=== PATIENT | male | born 1965 | race Caucasian/White ===

== ENCOUNTER 2019-03-23 17:15 | Inpatient (IN) ==
[2019-03-23] MEDS ORDERED: ALUM/MAG/SIMETH/LIDO VISC 1:1 30 ML BOTTLE PO STA (18:29)
[2019-03-23] MEDS ORDERED: ONDANSETRON 4 MG/2 ML VIAL IV STA (18:29)
[2019-03-23] MEDS ORDERED: NITROGLYCERIN 2% OINT 1 INCH/GM PACK TOP STA (18:29)
[2019-03-23 19:13] LABS: Basophils % 0.5 % (0.0-0.8); Eosinophils # 0.5 10*3/uL (0.0-0.87); Eosinophils % 6.9 % (0.00-10.9); Hematocrit 41.2 VOL% (42.0-52.0); Hemoglobin 13.8 GM/DL (14.0-18.0); Immature Granulocytes % 0.3 %; Immature Granulocytes Absolute 0.02 #; Lymphocytes # 2.4 10*3/uL (1.4-4.0); Lymphocytes % 31.5 % (21.2-54.2); Mean Corpuscular HGB Conc 33.5 GM/DL (32-36); Mean Corpuscular Volume 87.1 FL (87-102); Mean Platelet Volume 9.8 FL (9.6-12.0); Monocytes % 10.2 % (1.7-12.7); Neutrophils % 50.6 % (38.7-73.9); Platelet Count 333 T/CUMM (130-400); Red Blood Count 4.73 MC/CUMM (3.8-5.5); White Blood Count 7.7 T/CUMM (4-12)
[2019-03-23 19:17] LABS: Alanine Aminotransferase 24 U/L (16-61); Albumin 3.4 G/DL (3.4-5.0); Alkaline Phosphatase 46 U/L (45-117); Aspartate Amino Transferase 14 U/L (0-37); Bilirubin,Total < 0.39 MG/DL (0.2-1.0); Blood Urea Nitrogen 13 MG/DL (7-18); Calcium 9.4 MG/DL (8.5-10.1); Estimated Glom Filtration Rate 138 ML/MIN; Glucose 150 MG/DL (74-106); Osmolality,Calculated 277.7 MOS/KG (273-304); Total Protein 6.6 G/DL (6.4-8.3)
[2019-03-23 19:22] LABS: INR 0.9; PT Patient Result 9.8 SECS (9.6-12.2)
[2019-03-23] MEDS ORDERED: MORPHINE 4 MG/1 ML VIAL ONE (19:23)
[2019-03-23 19:25] LABS: Apearance,Urine CLEAR (Clear); Bilirubin,Urine Negative (Negative); Blood, Urine Negative (Negative); Glucose,Urine (UA) Negative (Negative); Ketones,Urine Negative (Negative); Nitrite,Urine Negative (Negative); Protein,Urine Negative; RBC,Urine 1 /HPF (0-4); Urine Color Straw (Yellow); Urine Specific Gravity 1.005 (1.001-1.035); Urine Urobilinogen < 2.0 EU/DL (0.2-1.0); WBC,Urine <1 /HPF (0-6)
[2019-03-23] MEDS ORDERED: MORPHINE 4 MG/1 ML VIAL IV STA (19:30)
[2019-03-23] MEDS ORDERED: ENOXAPARIN 100 MG/ML SYRINGE SUBCUT STA (19:39)
[2019-03-23] MEDS ORDERED: DEXTROSE 50% 25 GM/50 ML VIAL IV PRN (20:19)
[2019-03-23] MEDS ORDERED: GLUCAGON 1 MG VIAL IM PRN (20:19)
[2019-03-23] MEDS ORDERED: ONDANSETRON 4 MG/2 ML VIAL IV PRN (20:19)
[2019-03-23] MEDS ORDERED: ALBUTEROL 2.5 MG/3 ML NEB RESP TX PRN (20:26)
[2019-03-23] MEDS: ASPIRIN EC 325 MG TABLET PO SCH (21:38)
[2019-03-23] MEDS: GLIMEPIRIDE 2 MG TABLET PO SCH ×2 (23:44→23:49)
[2019-03-23] MEDS: INSULIN NPH/REGULAR 70/30 100 UNIT/ML SUBCUT SCH (23:45)
[2019-03-23] MEDS: INSULIN REGULAR 100 UNIT/ML SUBCUT SCH (23:45)
[2019-03-23] MEDS: METOPROLOL TARTRATE 25 MG TABLET PO SCH ×2 (23:45→23:50)
[2019-03-24] MEDS: ACETAMINOPHEN 325 MG TABLET PO PRN ×2 (06:54→19:07)
[2019-03-24] MEDS ORDERED: SIMVASTATIN 40 MG TABLET PO SCH (09:00)
[2019-03-24 09:53] LABS: Risk Ratio 5.46; VLDL CHOLESTEROL 68.8 MG/DL
[2019-03-24] MEDS: INSULIN REGULAR 100 UNIT/ML SUBCUT SCH ×4 (10:47→21:10)
[2019-03-24] MEDS: METOPROLOL TARTRATE 25 MG TABLET PO SCH ×3 (10:48→21:11)
[2019-03-24] MEDS: ASPIRIN EC 325 MG TABLET PO SCH (10:48)
[2019-03-24] MEDS: GLIMEPIRIDE 2 MG TABLET PO SCH ×2 (10:48→21:11)
[2019-03-24] MEDS: LOSARTAN 25 MG TABLET PO SCH (10:48)
[2019-03-24] MEDS: PANTOPRAZOLE 40 MG TABLET PO SCH (10:48)
[2019-03-24] MEDS: INSULIN NPH/REGULAR 70/30 100 UNIT/ML SUBCUT SCH ×2 (10:48→18:51)
[2019-03-24] MEDS ORDERED: GLUCAGON 1 MG VIAL IM PRN (11:05)
[2019-03-24] MEDS ORDERED: DEXTROSE 10% 250 ML BAG IV PRN (11:05)
[2019-03-24] MEDS: FENOFIBRATE 145 MG TABLET PO SCH ×2 (12:53→14:12)
[2019-03-24] MEDS: OMEGA 3 ACID ETHYL ESTERS 1 GM CAPSULE PO SCH ×2 (12:53→21:11)
[2019-03-24] MEDS: NITROGLYCERIN SL 0.4 MG TABLET SL PRN (18:51)
[2019-03-24] MEDS: ROSUVASTATIN 20 MG TABLET PO SCH (21:11)
[2019-03-25] MEDS: NITROGLYCERIN SL 0.4 MG TABLET SL PRN (01:15)
[2019-03-25] MEDS: ACETAMINOPHEN 325 MG TABLET PO PRN (04:05)
[2019-03-25 06:12] LABS: Basophils # 0.1 10*3/uL (0.0-0.2); Basophils % 0.6 % (0.0-0.8); Eosinophils # 0.6 10*3/uL (0.0-0.87); Eosinophils % 6.9 % (0.00-10.9); Hematocrit 41.5 VOL% (42.0-52.0); Hemoglobin 14.1 GM/DL (14.0-18.0); Immature Granulocytes % 0.2 %; Immature Granulocytes Absolute 0.02 #; Lymphocytes # 3.4 10*3/uL (1.4-4.0); Lymphocytes % 41.5 % (21.2-54.2); Mean Corpuscular Volume 87.4 FL (87-102); Mean Platelet Volume 9.5 FL (9.6-12.0); Neutrophils % 40.8 % (38.7-73.9); Platelet Count 302 T/CUMM (130-400); Red Blood Count 4.75 MC/CUMM (3.8-5.5); Red Cell Distribution Width 12.9 % (9.3-17.3); White Blood Count 8.3 T/CUMM (4-12)
[2019-03-25 06:34] LABS: Calcium 9.5 MG/DL (8.5-10.1); Osmolality,Calculated 282.1 MOS/KG (273-304)
[2019-03-25 06:39] LABS: Calcium 9.5 MG/DL (8.5-10.1); Osmolality,Calculated 280.3 MOS/KG (273-304)
[2019-03-25] MEDS: INSULIN REGULAR 100 UNIT/ML SUBCUT SCH ×4 (07:38→21:14)
[2019-03-25] MEDS ORDERED: MAGNESIUM SULF RIDER 2 GM in PREMIX 1 EACH IV PRN (08:27)
[2019-03-25] MEDS ORDERED: POTASSIUM CHLORIDE RIDER 10 MEQ in PREMIX 1 EACH IV PRN (08:27)
[2019-03-25] MEDS ORDERED: diphenhydrAMINE CAP 25 MG CAPSULE PO ONE (08:27)
[2019-03-25] MEDS ORDERED: DIAZEPAM 5 MG TABLET PO ONE (08:27)
[2019-03-25] MEDS: METOPROLOL TARTRATE 25 MG TABLET PO SCH ×2 (08:52→21:12)
[2019-03-25] MEDS: LOSARTAN 25 MG TABLET PO SCH (08:52)
[2019-03-25] MEDS: ASPIRIN EC 325 MG TABLET PO SCH (08:58)
[2019-03-25] MEDS: GLIMEPIRIDE 2 MG TABLET PO SCH ×2 (08:58→21:12)
[2019-03-25] MEDS: PANTOPRAZOLE 40 MG TABLET PO SCH (08:59)
[2019-03-25] MEDS: OMEGA 3 ACID ETHYL ESTERS 1 GM CAPSULE PO SCH ×2 (08:59→21:12)
[2019-03-25] MEDS: ISOSORBIDE MONONITRATE 30 MG TABLET PO SCH (08:59)
[2019-03-25] MEDS: INSULIN NPH/REGULAR 70/30 100 UNIT/ML SUBCUT SCH ×2 (08:59→18:20)
[2019-03-25] MEDS: FENOFIBRATE 145 MG TABLET PO SCH (09:00)
[2019-03-25] MEDS: SODIUM CHLORIDE 0.45% 1,000 ML IV SCH ×2 (09:09→19:04)
[2019-03-25] MEDS ORDERED: HEPARIN/NACL 0.9% 2 UNITS/ML 1,000 ML IV ONE (12:46)
[2019-03-25] MEDS ORDERED: LIDOCAINE 1% 20 ML VIAL ONE (12:46)
[2019-03-25] MEDS ORDERED: diphenhydrAMINE 50 MG/1 ML VIAL ONE ×2 (12:56→13:12)
[2019-03-25] MEDS ORDERED: HYDROmorphone 2 MG/1 ML VIAL ONE ×2 (12:56→13:12)
[2019-03-25] MEDS ORDERED: BIVALIRUDIN 250 MG VIAL IV ONE (13:25)
[2019-03-25] MEDS ORDERED: ADENOSINE 90 MG/30 ML VIAL IV ONE (13:53)
[2019-03-25] MEDS ORDERED: ASPIRIN 325 MG TABLET ONE (14:10)
[2019-03-25] MEDS ORDERED: TICAGRELOR 90 MG TABLET ONE (14:10)
[2019-03-25] MEDS ORDERED: ZALEPLON 5 MG CAPSULE PO PRN (14:16)
[2019-03-25] MEDS ORDERED: ENOXAPARIN 40 MG/0.4 ML SYRINGE SUBCUT SCH (14:30)
[2019-03-25] MEDS: TICAGRELOR 90 MG TABLET PO SCH (21:12)
[2019-03-25] MEDS: ROSUVASTATIN 20 MG TABLET PO SCH (21:12)
[2019-03-25 22:02] LABS: Troponin I < 0.015 NG/ML (0.00-0.045)
[2019-03-26] MEDS: SODIUM CHLORIDE 0.45% 1,000 ML IV SCH ×2 (03:35→20:06)
[2019-03-26 06:13] LABS: Basophils % 0.5 % (0.0-0.8); Eosinophils # 0.5 10*3/uL (0.0-0.87); Eosinophils % 6.1 % (0.00-10.9); Hematocrit 41.1 VOL% (42.0-52.0); Hemoglobin 13.6 GM/DL (14.0-18.0); Immature Granulocytes % 0.2 %; Immature Granulocytes Absolute 0.02 #; Lymphocytes # 3.1 10*3/uL (1.4-4.0); Lymphocytes % 36.1 % (21.2-54.2); Mean Corpuscular HGB Conc 33.1 GM/DL (32-36); Mean Corpuscular Volume 88.8 FL (87-102); Mean Platelet Volume 9.5 FL (9.6-12.0); Neutrophils % 47.1 % (38.7-73.9); Platelet Count 294 T/CUMM (130-400); Red Blood Count 4.63 MC/CUMM (3.8-5.5); Red Cell Distribution Width 13.1 % (9.3-17.3); White Blood Count 8.7 T/CUMM (4-12)
[2019-03-26 06:32] LABS: Calcium 8.8 MG/DL (8.5-10.1); Osmolality,Calculated 281.4 MOS/KG (273-304)
[2019-03-26 06:38] LABS: Blood Urea Nitrogen 15 MG/DL (7-18); Estimated Glom Filtration Rate 121 ML/MIN; Glucose 131 MG/DL (74-106); Osmolality,Calculated 279.5 MOS/KG (273-304); Troponin I < 0.015 NG/ML (0.00-0.045)
[2019-03-26] MEDS: INSULIN REGULAR 100 UNIT/ML SUBCUT SCH ×2 (08:41→12:53)
[2019-03-26] MEDS: INSULIN NPH/REGULAR 70/30 100 UNIT/ML SUBCUT SCH (08:42)
[2019-03-26] MEDS: GLIMEPIRIDE 2 MG TABLET PO SCH (08:44)
[2019-03-26] MEDS: METOPROLOL TARTRATE 25 MG TABLET PO SCH (08:45)
[2019-03-26] MEDS: OMEGA 3 ACID ETHYL ESTERS 1 GM CAPSULE PO SCH (08:45)
[2019-03-26] MEDS: LOSARTAN 25 MG TABLET PO SCH (08:45)
[2019-03-26] MEDS: TICAGRELOR 90 MG TABLET PO SCH (08:45)
[2019-03-26] MEDS: ISOSORBIDE MONONITRATE 30 MG TABLET PO SCH ×2 (08:45→08:54)
[2019-03-26] MEDS: FENOFIBRATE 145 MG TABLET PO SCH (08:45)
[2019-03-26] MEDS: PANTOPRAZOLE 40 MG TABLET PO SCH (08:45)
[2019-03-26] MEDS ORDERED: ASPIRIN EC 81 MG TABLET PO SCH (09:00)
[2019-03-26 12:57] VITALS: BP 147/89
== END 2019-03-26 15:49 | DRG 247 ==
LOC: N.EDINP 17:15 → N.ED 17:15 → N.3W 21:25
PROVIDERS: ADMIT Internal Medicine; ATTEND Internal Medicine
PROC: CLCCHCL (ICD-10-PCS; 2019-03-25 13:15)

== ENCOUNTER 2019-04-06 22:51 | Observation (INO) ==
[2019-04-06] MEDS ORDERED: MEPERIDINE 25 MG/1 ML VIAL IV STA (23:09)
[2019-04-06] MEDS ORDERED: ONDANSETRON 4 MG/2 ML VIAL IV STA (23:09)
[2019-04-06] MEDS ORDERED: NITROGLYCERIN 2% OINT 1 INCH/GM PACK TOP STA (23:09)
[2019-04-06 23:46] LABS: Basophils % 0.5 % (0.0-0.8); Eosinophils # 0.5 10*3/uL (0.0-0.87); Eosinophils % 5.6 % (0.00-10.9); Hematocrit 39.3 VOL% (42.0-52.0); Hemoglobin 13.2 GM/DL (14.0-18.0); Immature Granulocytes % 0.4 %; Immature Granulocytes Absolute 0.03 #; Lymphocytes # 2.9 10*3/uL (1.4-4.0); Lymphocytes % 34.8 % (21.2-54.2); Mean Corpuscular HGB Conc 33.6 GM/DL (32-36); Mean Corpuscular Volume 88.3 FL (87-102); Mean Platelet Volume 9.5 FL (9.6-12.0); Neutrophils % 49.7 % (38.7-73.9); Platelet Count 351 T/CUMM (130-400); Red Blood Count 4.45 MC/CUMM (3.8-5.5); Red Cell Distribution Width 13.1 % (9.3-17.3); White Blood Count 8.4 T/CUMM (4-12)
[2019-04-06 23:54] LABS: INR 0.9; Partial Thromboplastin Time 24.5 SECS (20.8-36.0)
[2019-04-06 23:58] LABS: Barbiturates Screen,Urine Negative (Negative); Benzodiazepines Screen,Urine Negative (Negative); Cannabinoid Screen,Urine Negative (Negative); Opiate Screen,Urine Positive (Negative); Phencyclidine Screen,Urine Negative (Negative)
[2019-04-06 23:59] LABS: Apearance,Urine CLEAR (Clear); Bilirubin,Urine Negative (Negative); Blood, Urine Negative (Negative); Glucose,Urine (UA) Negative (Negative); Ketones,Urine Negative (Negative); Mucus,Urine Occasional /LPF (Occasional); Nitrite,Urine Negative (Negative); Protein,Urine Negative; RBC,Urine 1 /HPF (0-4); Urine Color Yellow (Yellow); Urine Specific Gravity 1.011 (1.001-1.035); Urine Urobilinogen < 2.0 EU/DL (0.2-1.0); WBC,Urine 1 /HPF (0-6)
[2019-04-07 00:06] LABS: Alanine Aminotransferase 22 U/L (16-61); Albumin 3.3 G/DL (3.4-5.0); Alkaline Phosphatase 39 U/L (45-117); Aspartate Amino Transferase 16 U/L (0-37); Bilirubin,Total < 0.39 MG/DL (0.2-1.0); Blood Urea Nitrogen 13 MG/DL (7-18); Calcium 9.2 MG/DL (8.5-10.1); Estimated Glom Filtration Rate 108 ML/MIN; Glucose 125 MG/DL (74-106); Osmolality,Calculated 279.4 MOS/KG (273-304); Total Protein 6.8 G/DL (6.4-8.3); Troponin I < 0.015 NG/ML (0.00-0.045)
[2019-04-07] MEDS ORDERED: ORPHENADRINE 60 MG/2 ML VIAL IV STA (00:33)
[2019-04-07] MEDS ORDERED: INSULIN REGULAR 100 UNIT/ML SUBCUT ONE (01:45)
[2019-04-07] MEDS ORDERED: ONDANSETRON 4 MG/2 ML VIAL IV PRN (01:45)
[2019-04-07] MEDS ORDERED: ALBUTEROL 2.5 MG/3 ML NEB RESP TX PRN (02:02)
[2019-04-07 02:24] LABS: Risk Ratio 5.59; VLDL CHOLESTEROL 47.8 MG/DL
[2019-04-07] MEDS: MORPHINE 4 MG/1 ML VIAL IV PRN ×2 (02:27→06:51)
[2019-04-07] MEDS: NITROGLYCERIN 2% OINT 1 INCH/GM PACK TOP SCH ×2 (06:52→11:58)
[2019-04-07] MEDS: INSULIN REGULAR 100 UNIT/ML SUBCUT SCH ×4 (08:34→23:24)
[2019-04-07] MEDS: FENOFIBRATE 145 MG TABLET PO SCH (10:01)
[2019-04-07] MEDS: ASPIRIN EC 81 MG TABLET PO SCH (10:01)
[2019-04-07] MEDS: OMEGA 3 ACID ETHYL ESTERS 1 GM CAPSULE PO SCH ×2 (10:02→22:01)
[2019-04-07] MEDS: METOPROLOL TARTRATE 25 MG TABLET PO SCH ×2 (10:03→17:18)
[2019-04-07] MEDS: ISOSORBIDE MONONITRATE 30 MG TABLET PO SCH (10:03)
[2019-04-07] MEDS: TICAGRELOR 90 MG TABLET PO SCH ×2 (10:03→22:02)
[2019-04-07] MEDS: PANTOPRAZOLE 40 MG TABLET PO SCH (10:03)
[2019-04-07] MEDS: ENOXAPARIN 40 MG/0.4 ML SYRINGE SUBCUT SCH (10:03)
[2019-04-07] MEDS: LOSARTAN 25 MG TABLET PO SCH (10:03)
[2019-04-07] MEDS ORDERED: NITROGLYCERIN SL 0.4 MG TABLET SL PRN (11:35)
[2019-04-07] MEDS ORDERED: NITROGLYCERIN 2% OINT 1 INCH/GM PACK TOP SCH (12:20)
[2019-04-07] MEDS ORDERED: MAGNESIUM SULF RIDER 2 GM in PREMIX 1 EACH IV PRN (14:50)
[2019-04-07] MEDS ORDERED: POTASSIUM CHLORIDE RIDER 10 MEQ in PREMIX 1 EACH IV PRN (14:50)
[2019-04-07] MEDS: RANOLAZINE 500 MG TABLET PO SCH ×2 (15:57→22:01)
[2019-04-07] MEDS: ACETAMINOPHEN 325 MG TABLET PO PRN (15:57)
[2019-04-07] MEDS: ROSUVASTATIN 20 MG TABLET PO SCH (22:02)
[2019-04-08 05:58] LABS: Basophils % 0.4 % (0.0-0.8); Eosinophils # 0.5 10*3/uL (0.0-0.87); Eosinophils % 5.6 % (0.00-10.9); Immature Granulocytes % 0.1 %; Immature Granulocytes Absolute 0.01 #; Lymphocytes % 37.4 % (21.2-54.2); Mean Corpuscular HGB Conc 33.3 GM/DL (32-36); Mean Corpuscular Volume 87.6 FL (87-102); Mean Platelet Volume 9.6 FL (9.6-12.0); Monocytes % 10.7 % (1.7-12.7); Neutrophils % 45.8 % (38.7-73.9); Platelet Count 320 T/CUMM (130-400); Red Blood Count 4.45 MC/CUMM (3.8-5.5); Red Cell Distribution Width 13.1 % (9.3-17.3)
[2019-04-08 06:16] LABS: Calcium 8.8 MG/DL (8.5-10.1); Osmolality,Calculated 287.1 MOS/KG (273-304)
[2019-04-08] MEDS: INSULIN REGULAR 100 UNIT/ML SUBCUT SCH ×4 (07:45→20:32)
[2019-04-08] MEDS: TICAGRELOR 90 MG TABLET PO SCH ×2 (09:37→20:32)
[2019-04-08] MEDS: OMEGA 3 ACID ETHYL ESTERS 1 GM CAPSULE PO SCH ×2 (09:38→20:32)
[2019-04-08] MEDS: PANTOPRAZOLE 40 MG TABLET PO SCH (09:38)
[2019-04-08] MEDS: ACETAMINOPHEN 325 MG TABLET PO PRN (09:50)
[2019-04-08] MEDS: METOPROLOL TARTRATE 25 MG TABLET PO SCH ×2 (09:51→16:47)
[2019-04-08] MEDS: FENOFIBRATE 145 MG TABLET PO SCH (09:51)
[2019-04-08] MEDS: RANOLAZINE 500 MG TABLET PO SCH ×2 (09:51→20:37)
[2019-04-08] MEDS: ASPIRIN EC 81 MG TABLET PO SCH (09:51)
[2019-04-08] MEDS: LOSARTAN 25 MG TABLET PO SCH (09:52)
[2019-04-08] MEDS: ISOSORBIDE MONONITRATE 30 MG TABLET PO SCH (09:52)
[2019-04-08] MEDS: ENOXAPARIN 40 MG/0.4 ML SYRINGE SUBCUT SCH (09:52)
[2019-04-08] MEDS: SODIUM CHLORIDE 0.9% 1,000 ML IV SCH ×2 (09:52→18:39)
[2019-04-08] MEDS ORDERED: HYDROmorphone 2 MG/1 ML VIAL IV ONE (12:10)
[2019-04-08] MEDS ORDERED: LIDOCAINE 1% 20 ML VIAL ONE (12:19)
[2019-04-08] MEDS ORDERED: HEPARIN/NACL 0.9% 2 UNITS/ML 1,000 ML IV ONE (12:19)
[2019-04-08] MEDS ORDERED: DIAZEPAM 5 MG TABLET PO ONE (12:30)
[2019-04-08] MEDS ORDERED: diphenhydrAMINE CAP 25 MG CAPSULE PO ONE (12:30)
[2019-04-08] MEDS ORDERED: MIDAZOLAM 2 MG/2 ML VIAL ONE ×3 (14:29→14:51)
[2019-04-08] MEDS ORDERED: fentaNYL 100 MCG/2 ML VIAL ONE ×2 (14:29→14:51)
[2019-04-08] MEDS ORDERED: TICAGRELOR 90 MG TABLET ONE (15:03)
[2019-04-08] MEDS ORDERED: MORPHINE 4 MG/1 ML VIAL IV PRN (15:38)
[2019-04-08] MEDS ORDERED: fentaNYL 100 MCG/2 ML VIAL IV PRN (15:38)
[2019-04-08] MEDS: MORPHINE 4 MG/1 ML VIAL IV PRN ×2 (19:41→22:23)
[2019-04-08] MEDS: ROSUVASTATIN 20 MG TABLET PO SCH (20:32)
[2019-04-09] MEDS: SODIUM CHLORIDE 0.9% 1,000 ML IV SCH ×4 (01:37→20:17)
[2019-04-09] MEDS: MORPHINE 4 MG/1 ML VIAL IV PRN ×6 (01:40→20:15)
[2019-04-09 05:28] LABS: Basophils % 0.4 % (0.0-0.8); Eosinophils # 0.4 10*3/uL (0.0-0.87); Eosinophils % 4.7 % (0.00-10.9); Hemoglobin 12.8 GM/DL (14.0-18.0); Immature Granulocytes % 0.2 %; Immature Granulocytes Absolute 0.02 #; Lymphocytes % 35.7 % (21.2-54.2); Mean Corpuscular HGB Conc 33.7 GM/DL (32-36); Mean Corpuscular Volume 87.2 FL (87-102); Mean Platelet Volume 9.9 FL (9.6-12.0); Monocytes % 10.7 % (1.7-12.7); Neutrophils % 48.3 % (38.7-73.9); Platelet Count 329 T/CUMM (130-400); Red Blood Count 4.36 MC/CUMM (3.8-5.5); Red Cell Distribution Width 13.1 % (9.3-17.3); White Blood Count 8.3 T/CUMM (4-12)
[2019-04-09 06:06] LABS: Calcium 8.9 MG/DL (8.5-10.1); Osmolality,Calculated 279.5 MOS/KG (273-304)
[2019-04-09] MEDS: INSULIN REGULAR 100 UNIT/ML SUBCUT SCH ×4 (09:16→22:16)
[2019-04-09] MEDS: FENOFIBRATE 145 MG TABLET PO SCH (09:18)
[2019-04-09] MEDS: PANTOPRAZOLE 40 MG TABLET PO SCH (09:18)
[2019-04-09] MEDS: LOSARTAN 25 MG TABLET PO SCH (09:18)
[2019-04-09] MEDS: ENOXAPARIN 40 MG/0.4 ML SYRINGE SUBCUT SCH (09:18)
[2019-04-09] MEDS: RANOLAZINE 500 MG TABLET PO SCH ×2 (09:18→21:30)
[2019-04-09] MEDS: OMEGA 3 ACID ETHYL ESTERS 1 GM CAPSULE PO SCH ×2 (09:18→21:30)
[2019-04-09] MEDS: ASPIRIN EC 81 MG TABLET PO SCH (09:18)
[2019-04-09] MEDS: TICAGRELOR 90 MG TABLET PO SCH ×2 (09:18→21:30)
[2019-04-09] MEDS: METOPROLOL TARTRATE 25 MG TABLET PO SCH ×2 (09:18→16:36)
[2019-04-09] MEDS: ISOSORBIDE MONONITRATE 30 MG TABLET PO SCH (09:19)
[2019-04-09] MEDS: ACETAMINOPHEN 325 MG TABLET PO PRN (11:50)
[2019-04-09] MEDS: ROSUVASTATIN 20 MG TABLET PO SCH (21:30)
[2019-04-10] MEDS: MORPHINE 4 MG/1 ML VIAL IV PRN ×3 (00:11→06:58)
[2019-04-10] MEDS: SODIUM CHLORIDE 0.9% 1,000 ML IV SCH ×2 (03:43→09:18)
[2019-04-10 05:16] LABS: Basophils % 0.5 % (0.0-0.8); Eosinophils # 0.5 10*3/uL (0.0-0.87); Eosinophils % 5.5 % (0.00-10.9); Hematocrit 37.8 VOL% (42.0-52.0); Hemoglobin 12.6 GM/DL (14.0-18.0); Immature Granulocytes % 0.2 %; Immature Granulocytes Absolute 0.02 #; Lymphocytes # 2.3 10*3/uL (1.4-4.0); Lymphocytes % 27.4 % (21.2-54.2); Mean Corpuscular HGB Conc 33.3 GM/DL (32-36); Mean Corpuscular Volume 87.9 FL (87-102); Mean Platelet Volume 9.9 FL (9.6-12.0); Monocytes % 11.3 % (1.7-12.7); Neutrophils % 55.1 % (38.7-73.9); Platelet Count 312 T/CUMM (130-400); Red Cell Distribution Width 12.9 % (9.3-17.3); White Blood Count 8.2 T/CUMM (4-12)
[2019-04-10 05:32] LABS: Calcium 8.9 MG/DL (8.5-10.1); Osmolality,Calculated 285.3 MOS/KG (273-304)
[2019-04-10] MEDS: INSULIN REGULAR 100 UNIT/ML SUBCUT SCH ×2 (08:09→11:52)
[2019-04-10 08:10] VITALS: BP 154/81
[2019-04-10] MEDS: ASPIRIN EC 81 MG TABLET PO SCH (09:17)
[2019-04-10] MEDS: METOPROLOL TARTRATE 25 MG TABLET PO SCH (09:17)
[2019-04-10] MEDS: OMEGA 3 ACID ETHYL ESTERS 1 GM CAPSULE PO SCH (09:17)
[2019-04-10] MEDS: RANOLAZINE 500 MG TABLET PO SCH (09:18)
[2019-04-10] MEDS: ENOXAPARIN 40 MG/0.4 ML SYRINGE SUBCUT SCH (09:18)
[2019-04-10] MEDS: PANTOPRAZOLE 40 MG TABLET PO SCH (09:18)
[2019-04-10] MEDS: LOSARTAN 25 MG TABLET PO SCH (09:18)
[2019-04-10] MEDS: TICAGRELOR 90 MG TABLET PO SCH (09:18)
[2019-04-10] MEDS: FENOFIBRATE 145 MG TABLET PO SCH (09:18)
[2019-04-10] MEDS: ISOSORBIDE MONONITRATE 30 MG TABLET PO SCH (09:18)
== END 2019-04-10 14:30 ==
LOC: EDBD → EDUNIT# → N.EDINP 22:51 → N.ED 22:51 → SUATTDRO 04-07 01:45 → N.3W 04-07 02:35
PROVIDERS: ADMIT Emergency Medicine; ATTEND Hospitalist
PROC: CLCCHCL (ICD-10-PCS; 2019-04-08 13:45)